=== PATIENT | female | born 1990 | race Caucasian/White ===

== ENCOUNTER 2016-12-09 20:36 | Outpatient (CLI) | payer MEDICAID | END 2016-12-09 20:37 | disposition critical access hospital (66) | LOC: EMS 20:36 | PROVIDERS: ATTEND Surgery | DX: R45.851 Suicidal ideations (principal) | CPT/HCPCS: A0425; A0429 ==

== ENCOUNTER 2016-12-09 20:50 | Emergency (ER) | payer MEDICAID ==
[2016-12-09] MEDS ORDERED: OLANZapine 10 MG VIAL IM STA (21:27)
[2016-12-09] MEDS ORDERED: OLANZapine 10 MG VIAL IM ONE (21:29)
[2016-12-09] MEDS ORDERED: WATER FOR INJECTION,STERILE 10 ML ONE (21:31)
== END 2016-12-10 06:46 | disposition home or self-care (01) ==
DX: F10.129 Alcohol abuse with intoxication, unspecified (principal); F41.9 Anxiety disorder, unspecified; F32.9 Major depressive disorder, single episode, unspecified; Z87.891 Personal history of nicotine dependence